=== PATIENT | female | born 1960 ===

== ENCOUNTER → 2023-08-02 07:04 | Outpatient (REF) | payer OTHER, SELFPAY | LOC: DHCBC/DCA 07:04 | PROVIDERS: ATTENDING PHYSICIAN Internal Medicine Cardiovascular Disease | DX: I42.8 Other cardiomyopathies (principal); R06.09 Other forms of dyspnea; R07.89 Other chest pain | CPT/HCPCS: 78452; 93017; A9500; J2785 ==